=== PATIENT | male | born 1980 | race Caucasian/White ===

== ENCOUNTER 2020-03-27 17:12 | Emergency (ER) | payer MEDICAID, OTHER ==
[~2020-03-27] VITALS: Ht 188 cm; Wt 90.9 kg
--- NOTE | 2020-03-27 17:47 | NUR ---
Pt transported to [place] via [place] with tech.
[2020-03-27] MEDS ORDERED: ketorolac trometh. 30mg/ml inj. IM ONE (18:50)
[2020-03-27] MEDS ORDERED: HYDROcodone/acetaminophen 10/325mg tab PO ONE (18:50)
[2020-03-27 19:01] VITALS: BP 144/88
--- NOTE | 2020-03-27 19:07 | NUR ---
cleared pt's c-spine images and gave order to remove c-collar prior to dc
== END 2020-03-27 19:20 | disposition home or self-care (01) ==
LOC: ER 17:13
DX: S16.1XXA Strain of muscle, fascia and tendon at neck level, initial encounter (principal); S39.012A Strain of muscle, fascia and tendon of lower back, initial encounter; K21.9 Gastro-esophageal reflux disease without esophagitis; F12.90 Cannabis use, unspecified, uncomplicated; Z98.890 Other specified postprocedural states; Z88.0 Allergy status to penicillin; V89.2XXA Person injured in unspecified motor-vehicle accident, traffic, initial encounter; W22.11XA Striking against or struck by driver side automobile airbag, initial encounter; Y93.89 Activity, other specified; Y92.89 Other specified places as the place of occurrence of the external cause; Y99.8 Other external cause status
CPT/HCPCS: 72125; 72128; 72131; 96372; 99285; J1885